=== PATIENT | male | born 1955 | race Caucasian/White ===

== ENCOUNTER 2017-12-31 15:39 | Emergency (ER) | payer OTHER ==
[~2017-12-31] VITALS: Ht 172.7 cm; Wt 76.3 kg
[2017-12-31 15:48] VITALS: BP 129/60
== END 2017-12-31 17:27 | disposition home or self-care (01) ==
LOC: ED 17:15
DX: M54.5 Low back pain (principal); J44.9 Chronic obstructive pulmonary disease, unspecified; F17.210 Nicotine dependence, cigarettes, uncomplicated
CPT/HCPCS: 72110; 99284

== ENCOUNTER 2018-01-05 14:00 | Emergency (ER) | payer OTHER ==
[~2018-01-05] VITALS: Ht 172.7 cm; Wt 74.2 kg
[2018-01-05 14:01] VITALS: BP 159/102
[2018-01-05] MEDS ORDERED: ONDANSETRON ODT 4 MG PO ONE (14:30)
[2018-01-05] MEDS ORDERED: KETOROLAC 30 MG/1 ML IM ONE (14:30)
[2018-01-05] MEDS ORDERED: CYCLOBENZAPRINE 10 MG TABLET PO ONE (14:30)
[2018-01-05] MEDS ORDERED: HYDROcodone/APAP 5/325 TABLET PO ONE (14:30)
[2018-01-05] MEDS ORDERED: ONDANSETRON ODT 4 MG ONE (14:39)
[2018-01-05] MEDS ORDERED: HYDROcodone/APAP 5/325 TABLET ONE (14:39)
[2018-01-05] MEDS ORDERED: KETOROLAC 30 MG/1 ML ONE (14:39)
[2018-01-05] MEDS ORDERED: CYCLOBENZAPRINE 10 MG TABLET ONE (14:39)
== END 2018-01-05 15:20 | disposition home or self-care (01) ==
LOC: ED 15:14
DX: M54.42 Lumbago with sciatica, left side (principal); G89.29 Other chronic pain; J44.9 Chronic obstructive pulmonary disease, unspecified
CPT/HCPCS: 96372; 99283; J1885